=== PATIENT | male | born 1965 | race Caucasian/White ===

== ENCOUNTER 2017-05-22 12:47 | Inpatient (IN) | payer MEDICAID ==
[2017-05-22] VITALS (22 sets, daily range): BP systolic 87–173; BP diastolic 61–113; BMI 31.8
[~2017-05-22] VITALS: Ht 177.8 cm; Wt 96.2 kg
--- NOTE | ~2017-05-22 | OP ---
PATIENT NAME: TRACY BASHIR MEDICAL RECORD: [id number] :65 LOCATION:.[facility] D.2310 ADMISSION DATE:05/22/17 SURGEON: JOLEEN NEWMAN MD DATE OF OPERATION: 05/22/2017 INDICATION: Cardiogenic shock. PROCEDURES: Left heart catheterization, selective coronary angiography, right femoral artery approach. CATHETERS: A 6-Indonesian sheath, 5/4 left and right Jae. The procedure was tolerated. We proceeded with PTCA stenting of the circumflex. FINDINGS: Left ventriculography in the 30-degree RENO view shows severe global hypokinesis consistent with post code state EF 20%. CORONARY ANATOMY: LEFT MAIN: Left main is free of disease. LAD: LAD has a proximal stenosis about 80%. CIRCUMFLEX: Circumflex is a left dominant system. Circumflex has a distal stenosis in the PDA of 80%. OM2 90% stenosis. Subtotaled OM1 not appreciated till later views. DESCRIPTION OF PROCEDURE: Using an indwelling 6-Indonesian sheath, XB LAD guiding catheter provided good guide support. The lesion in the LAD was addressed with a 3.0 x 15 mm [place] balloon up to 10 atmospheres. OM2 was addressed with a 3.0 x 15 mm [place] balloon up to 14 atmospheres. OM1 was then crossed with predeployment balloon, it was a 3.0 x 15 mm [place] balloon. Stent deployed were a 3.0 x 15 mm Integrity and 3.0 x 15 mm Integrity, both up to 14 atmospheres for 45 seconds. Final angiography shows excellent resolution of one 80% PDA stenosis to no significant residual, OM2 80-90% stenosis, no significant residual. OM1 successful stenting to the subtotal stenosis. IMPRESSION: The patient was transferred to ICU in critical condition. Prognosis appears to be poor given overall neurological status with tonic-clonic seizures in the procedure. TRANSINT:[id number] Voice Confirmation ID: [id number] DOCUMENT ID: [id number] JOLEEN NEWMAN MD CC: [id number] DICTATION DATE: 05/22/17 1420 ORNAMENTAL IRONWORKER: 05/22/17 1450 [place] [address]
--- NOTE | ~2017-05-22 | HP ---
PATIENT: TRACY BASHIR MEDICAL RECORD: [id number] ACCOUNT: [id number] LOCATION:[facility]2310 : 65 ADMISSION DATE: 05/22/17 HISTORY AND PHYSICAL EXAMINATION HISTORY: A 51-year-old gentleman was at home, complained of chest pain, promptly thereafter collapsed, witnessed event. CPR started at home. EMS was called via 911 and rushed to the Emergency Room. Resuscitation was continued for approximately another 40 minutes. He was found to have inferior myocardial infarction. Being brought to the crown and bridge dental lab technician on an urgent basis. He has no known history of coronary artery disease per family report. PHYSICAL EXAMINATION: GENERAL: Intubated and sedated. Some decerebrate posturing of ____ extremities. HEENT: Normocephalic and atraumatic. NECK: No bruits noted. HEART: Tachycardic, regular. LUNGS: Upper airway noise consistent with intubation. ABDOMEN: Bowel sounds are hypoactive. No obvious masses. EXTREMITIES: Pulses are actually well preserved. No edema. IMPRESSION: Acute inferolateral myocardial infarction and cardiogenic shock. He is being taken to the crown and bridge dental lab technician on emergent basis. TRANSINT:[id number] Voice Confirmation ID: [id number] DOCUMENT ID: [id number] JOLEEN NEWMAN MD CC: [id number] DICTATION DATE: 05/22/171543 EXTENSION SERVICE SPECIALIST IN CHARGE: 05/22/17 1726 ADM IN [place] [id number] [place] [address]
--- NOTE | ~2017-05-22 | CN ---
PATIENT NAME:TRACY WRIGHT MEDICAL RECORD: [id number] : 65 LOCATION:[facility]2310 ADMIT DATE: 05/22/17 ACCOUNT: [id number] CONSULTING PHYSICIAN: MARIUM MADDOX MD REFERRING PHYSICIAN: LISANDRA NINA MD DATE OF CONSULTATION: 05/22/2017 CONSULT REQUESTING PHYSICIAN: Robinson Miller MD REASON FOR CONSULTATION: Vent management. HISTORY OF PRESENT ILLNESS: Mr. Wright is a 51-year-old gentleman who is now orally intubated and unresponsive. The history was taken from his . According to the , he is complaining of chest pain for the last 2-3 weeks and it was radiating to his left arm. The pain was persistent, getting worse with exertion. There was no associated nausea or vomiting. In the meantime, they also visited a casino. Today, at home, the patient was at home and the patient was working on something with ____ his that he is getting heart attack and he is passing out. The patient became unresponsive. Somebody in the family did some chest compression on him and 911 was called. The patient was intubated in the field and he was shocked [address] to the hospital. The patient was taken to the cardiac laborer powerhouse, and on the table, he had seizures as well as he coded again. The patient was shocked and antiepileptic medication was given. 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 Now, the patient is orally intubated and the patient is on the ventilator. REVIEW OF THE SYSTEMS: Details not obtainable. PAST MEDICAL HISTORY: According to the , he is smoker of 2-3 packs a day, but there is no history of hypertension or diabetes. He is not taking any medications for any illness. PAST SURGICAL HISTORY: Nonsignificant. PERSONAL AND SOCIAL HISTORY: The patient is . He is drinking as well as he is smoking 2-3 packs of cigarettes per day. FAMILY HISTORY: Noncontributory. PHYSICAL EXAMINATION: GENERAL: Now, the patient is orally intubated and sedated. The patient is unresponsive. VITAL SIGNS: Blood pressure is 87 to 102 over 73, pulse is 132, respirations 28, temperature 98.6, and SpO2 is 90% on 100% nonrebreather. HEENT: Conjunctivae are pink. Sclerae are nonicteric. NECK: Neck is supple. There is elevated JVD. CHEST: There are bilateral crackles. No wheezing. HEART: Rate and rhythm regular. Normal sounds. No murmur. ABDOMEN: Abdomen is soft. Bowel sounds are present. No hepatosplenomegaly. RECTAL: Deferred. EXTREMITIES: No cyanosis. No clubbing. No pedal edema. CENTRAL NERVOUS SYSTEM: The pupils are nearly 4 mm and reactive to light, but there is no palpebral response to painful stimuli and verbal stimuli. LABORATORY DATA: CBC; WBC is 13.2, hemoglobin 15.3, hematocrit 46.9, and CONSULT REPORT [id number] TRACY WRIGHT platelet count is 149. Chemistry; sodium 142, potassium 3.4, BUN is 14, creatinine 1.5, and glucose 277. ABG; pH was 7.00, pCO2 was 42.5, pO2 of 87, and bicarb is 10.7. The lactic acid level is 19.63. IMPRESSION: 1. Acute respiratory failure secondary to cardiopulmonary arrest. 2. Acute SD. 3. Metabolic acidosis. 4. Lactic acidosis, most likely secondary to cardiopulmonary arrest and poor perfusion. 5. Seizure disorder, possible anoxic encephalopathy. 6. Tobacco dependence syndrome. 7. Leukocytosis. RECOMMENDATION: 1. We will continue mechanical ventilation. Start on bicarb drip. Start him on Rocephin empirically. 2. DVT and GI blood ulcer prevention. 3. Albuterol and ipratropium nebulizer. 4. Followup labs and chest radiograph in the morning. 5. Consult Dr. Francisco. The overall prognosis is guarded. I discussed with family in lengthy. The critical care time is [address] Miller, thank you for involving me in the care of Mr. Wright. TRANSINT:[id number] Voice Confirmation ID: [id number] DOCUMENT ID: [id number] MARIUM MADDOX MD CC: ROBINSON ENWMAN MD [id number] DICTATION DATE: 05/22/171701 ALL AROUND PATTERNMAKER: 05/22/172021 ADM IN [facility] [address] [place] [address]
--- NOTE | ~2017-05-22 | HEMODYNAMI ---
PATIENT:TRACY BASHIR MEDICAL RECORD: [id number] : 65 LOCATION:[facility] D.2310 ADMISSION DATE: 05/22/17 Generatedon:05/24/20179:30 Patient name: TRACY BASHIR Patient #: [id number] SSN: : 1965 Date of study: 05/22/2017 Page: Of Hemodynamic Procedure Report Patient Data Patient Demographics Procedure consent was obtained First Name: TRACY Gender: Male Last Name: KRYSTEN : 1965 Middle Initial: W Age: 51 year(s) Patient #: [id number] Race: Additional ID: [id number] Contact details [address]: [address] [place] [address] State: [place] City: [place] Zip code: [address] Admission Admission Data Admission Date: 05/22/2017 Admission Time: 14:59 Room #: D.2310 Procedure Procedure Types Cath Procedure Diagnostic Procedure LHC LHC w/Coronaries PCI Procedure AMI-BMS/BASIM Initial PTCA Additional Miscellaneous Procedures Moderate Sedation up to 45 minutes Procedure Description Procedure Date Procedure Date: 05/22/2017 Procedure Start Time: 13:27 Procedure End Time: 14:28 Procedure Staff Name Function Darling Parisi RT Monitor Baljit Houston RT Scrub True Pinto RN Nurse Robinson Miller MD Performing Physician Ileana Agrawal RT Scrub Procedure Data Cath Procedure Fluoroscopy Diagnostic fluoroscopy Total fluoroscopy Time: time: 15.8 min 15.8 min Diagnostic fluoroscopy Total fluoroscopy dose: dose: 2044 mGy 2044 mGy Contrast Material Contrast Material Type Amount (ml) Isovue 300 257 Entry Location Entry Primary Successful Side Size Upsize Upsize Entry Closure Succes sful Closure Location (Fr) 1 (Fr) 2 (Fr) Remarks Device Remarks Femoral Right 6 Fr Sheath artery Short sutured in place Estimated blood loss: 10 ml Diagnostic catheters Device Type Used For End Catheter Placement Cordis 5Fr JL 4.0 Left Coronary Catheter (MP) Angiography Cordis 5Fr 3DRC Catheter Right Coronary (MP) Angiography Cordis 5Fr Pigtail LV Angiography Catheter (MP) Procedure Complications No complications Procedure Medications Medication Administration Route Dosage Integrilin (Bolus I.V. 9 ml 2mg/ml) Oxygen Lidocaine 2% added to field 20 Heparin Flush Bag added to field 2 bags (1000units/500ml NS) 0.9% NaCl I.V. 100 ml/hr Ativan 2 mg unlisted medication I.V. drip 1000 Solumedrol I.V. 125 mg Ativan 2 mg Hemodynamics Rest Heart Rate: 125 (bpm) Pressure Samples Time Site Value (mmHg) Purpose Heart Use Rate(bpm) 14:10 LV 143/49,56 Snapshot 113 Gradients Valve Time Site Site Mean SEP/DFP Peak To Heart Use 1 2 (mmHg) (sec/min) Peak Rate (mmHg) (bpm) Aortic 14:11 LV AO 121 Snapshots Pre Cath Intra NCS Post Cath Vital Signs Time Heart Resp SPO2 etCO2 [id number] NIBP (mmHg) Rhythm Pain Sedatio n Rate (ipm) (%) (mmHg) (mmHg) Status Level (bpm) 13:25:44 128 24 100 0 0 Measuring NSR 0 (11) 10(A) , No pain 13:27:18 125 25 100 0 0 137/107(121) NSR 0 (11) 10(A) , No pain 13:32:05 123 21 100 0 0 151/103(134) NSR 0 (11) 10(A) , No pain 13:37:04 119 24 100 0 0 Measuring NSR 0 (11) 10(A) , No pain 13:37:51 120 29 99 0 0 148/85(116) NSR 0 (11) 10(A) , No pain 13:42:50 133 25 97 0 0 Measuring NSR 0 (11) 10(A) , No pain 13:43:39 123 34 84 0 0 Disturbed NSR 0 (11) 10(A) , No pain 13:48:13 124 27 91 0 0 Out of range NSR 0 (11) 10(A) , No pain 13:53:13 128 57 91 0 0 165/102(127) NSR 0 (11) 10(A) , No pain 13:58:11 121 30 89 0 0 Measuring NSR 0 (11) 10(A) , No pain 13:59:15 129 30 84 0 0 182/116(126) NSR 0 (11) 10(A) , No pain 14:04:14 125 31 89 0 0 Measuring NSR 0 (11) 10(A) , No pain 14:04:16 126 30 87 0 0 151/93(122) NSR 0 (11) 10(A) , No pain 14:09:15 120 34 89 0 0 Measuring NSR 0 (11) 10(A) , No pain 14:10:00 124 29 89 0 0 148/97(110) NSR 0 (11) 10(A) , No pain 14:14:51 127 26 85 0 0 150/89(106) NSR 0 (11) 10(A) , No pain 14:19:40 126 27 87 0 0 153/101(116) NSR 0 (11) 10(A) , No pain 14:24:31 124 39 92 0 0 160/103(132) NSR 0 (11) 10(A) , No pain Medications Time Medication Route Dose Verified Delivered Reason Notes Effectiveness by by 13:21:37 Oxygen et intubated Robinson Davidsonie Per pt is tube [facility] Pinto RN physician unresponsive on arrival to lab 13:25:13 Lidocaine 2% added 20ml vial Robinson Biswas used for pt is to [facility] Pinto RN procedure unresponsive field BURCH on arrival to lab 13:25:23 Heparin Flush added 2 bags Robinson Robinson used for pt is Bag to [facility] procedure unresponsive (1000units/500ml field MD BURCH on arrival NS) to lab 13:25:31 0.9% NaCl I.V. 100 ml/hr Robinson Davidsonie Per pt is [facility] Pinto RN physician unresponsive on arrival to lab 13:34:10 Integrilin I.V. 9 ml Robinson Davidsonie for waste d 1 ml (Bolus 2mg/ml) [facility] Pinto RN antiplatelet of vial MD therapy 13:44:02 Ativan IV 2 mg Robinson Biswas Per for s eizure [facility] T[facility] Pinto RN physician activity. 14:01:27 cerebyx I.V. 1000 Robinson Biswas Per drip mg/[address] T[facility] Pinto RN physician @ 240 MD ml/hr 14:02:13 Solumedrol I.V. 125 mg Robinson [address] Per [facility] T[facility] Pinto RN physician 14:09:07 Ativan IV 2 mg Robinson Acosta RN physician Procedure Log Time Note 13:18:50 Edwardo Randall RT(R) sent for patient. Start room use. 13:18:51 Time tracking: Regular hours 13:18:55 Plan of Care:Hemodynamics will remain stable., Cardiac rhythm will remain stable., Comfort level will be maintained., Respiratory function will remain adequate., Patient/ family verbilizes understanding of procedure., Procedure tolerated without complication., Recovers from procedure without complications.. 13:19:00 Use device set Femoral PCI 13:19:01 Acist Hand Control opened to sterile field. 13:19:01 Acist Syringe opened to sterile field. 13:19:02 Terumo 6Fr Murtaugh Sheath opened to sterile field. 13:19:02 Medline Cath Pack opened to sterile field. 13:19:02 Bag Decanter opened to sterile field. 13:19:03 Merit BasixCompak Inflation Kit opened to sterile field. 13:19:03 St Robin 260cm J .035 wire opened to sterile field. 13:19:04 Tegaderm 4 x 4 opened to sterile field. 13:19:04 Acist Manifold opened to sterile field. 13:19:14 Use device set Multipack Set 13:19:16 Diagnostic Infinity 5Fr Multipack catheter opened to sterile field. 13:21:04 Patient received from ED to CCL 1 On ventilator. Tansferred to table in Supine position. 13:21:05 Warm blankets applied, and jarred hugger turned on for patient comfort. 13:21:06 Correct patient and procedure confirmed by team. 13:21:07 Signed procedure consent form obtained from patient. 13:21:08 ECG and BP/O2 sat monitors applied to patient. 13:21:09 Full Disclosure recording started 13:21:37 Oxygen intubated et tube was administered by True Pinto RN; Per physician; pt is unresponsive on arrival to lab 13:24:35 Vital chart was started 13:24:40 Rhythm: sinus rhythm 13:24:46 H&P Date Dictated: 05/22/2017 Emergent; H&P N/A. 13:24:47 Pre-op teaching completed and patient verbalized understanding. 13:24:47 Pre-procedure instructions explained to patient. 13:24:51 Family in waiting room. 13:24:52 Patient NPO since Midnight. 13:25:03 Is the patient allergic to Iodine/contrast media? No. 13:25:04 Is patient on blood thinner?No 13:25:13 Lidocaine 2% 20ml vial added to field was administered by True Pinto RN; used for procedure; pt is unresponsive on arrival to lab 13:25:19 Patient diabetic? No. 13:25:23 Heparin Flush Bag (1000units/500ml NS) 2 bags added to field was administered by Robinson Miller MD; used for procedure; pt is unresponsive on arrival to lab 13:25:23 ----Pre-sedation anethsthesia assessment.---- 13::31 0.9% NaCl 100 ml/hr I.V. was administered by True Pinto RN; Per physician; pt is unresponsive on arrival to lab 13:25:42 UNABLE TO OBTAIN ASSESSMENT, PT ON VENT. 13:25:46 Pre procedure: right dorsailis pedis pulse 1+ Palpable, but thready & weak; easily obliterated 13:25:48 Patient pain scale 0/10 ?. 13:26:05 IV patent on arrival in right forearm with 0.9% NaCl at KVO. 13::19 IV started by True Pinto RN inleft forearm with a 18 gauge IV catheter with 0.9% NaCl at KVO. 13:26:23 Lab results completed and on chart. 13:26:25 Alarms reviewed by R. N. 13:26:25 Right groin area was prepped with chlora-prep and draped in sterile fashion 13::26 Sharps counted by scrub and verified by R.N. 13:26:28 Final Timeout: patient, procedure, and site verified with staff and physician. All members of the team are in agreement. 13:26:30 Right groin site verified by team. 13:26:32 Physical assessment completed. ASA score P 4 - A patient with severe systemic disease that is a constant threat to life as per Robinson Miller MD. 13:26:35 Sedation plan: IV Moderate Sedation Versed, Fentanyl 13:26:52 18G IV catheter opened to sterile field. 13:27:01 Procedure started. 13:27:03 Local anesthetic to right femoral artery with Lidocaine 2% by Robinson Miller MD.INITIAL ACCESS ONLY 13:27:45 A 6 Fr Short sheath was inserted into the Right Femoral artery 13:28:53 A Cordis 5Fr JL 4.0 Catheter (MP) was advanced over the wire and used for Left Coronary Angiography. 13:29:25 Baseline sample Acquired. 13:29:35 IV Extension Set opened to sterile field. 13:31:44 Catheter removed. 13:31:49 A Cordis 5Fr 3DRC Catheter (MP) was advanced over the wire and used for Right Coronary Angiography. 13:31:52 Catheter removed. 13:32:39 Guerra Whisper J 300cm 0.014 guide wire opened to sterile field. 13:33:02 iOpenertronic Launcher 6Fr JR 4.0 SH guide catheter opened to sterile field. 13:34:10 6 Fr JR 4.0 SH guide catheter was inserted over the wire 13:34:10 Integrilin (Bolus 2mg/ml) 9 ml I.V. was administered by True Pitno RN; for antiplatelet therapy; wasted 1 ml of vial 13:34:54 WHISPER wire advanced. 13:35:04 pt having decordicate posturing, dr rmoan aware. pupils moving side to side with slow light reaction. 13:38:25 Wire removed. 13:38:37 Guide Catheter removed. unable to get back-up support 13:38:50 6 Fr HS I SH guide catheter was inserted over the wire 13:41:33 WHISPER wire advanced. 13:41:46 Guerra BMW Evening Shade 2 J-tip 300cm 0.014 guide wir opened to sterile field. 13:44:02 Ativan 2 mg IV was administered by True Pinto RN; Per physician; for seizure activity. 13:46:53 Wire removed. 13:47:36 UNABLE TO CROSS RCA OCCLUSION 13:47:57 Cordis 6FR XBLAD 3.5 guide catheter opened to sterile field. 13:48:40 6 Fr XBLAD 3.5 guide catheter was inserted over the wire 13:49:32 The Austin Sci Angelina 2.0 X 15 balloon was advanced and then removed because of failure to cross lesion 13:50:29 Whisper wire advanced. 13:51:21 Inflation number: 1 A Austin Sci Angelina 3.0 X 20 balloon was prepped and advanced across the Mid CX, then inflated to 14 ANTONI for 0:16 (min:sec). 13:52:37 Inflation number: 2 The Austin Sci Angelina 3.0 X 20 balloon was reinflated across the Mid CX, to 14 ANTONI for 0:23 (min:sec). 13:53:27 Balloon removed over the wire. 13:53:28 Wire removed. 13:53:29 Guide catheter removed. 13:54:19 6 Fr XBLAD 3.5 guide catheter was inserted over the wire 13:55:14 Whisper wire advanced. 13:59:15 The Austin Sci Angelina 3.0 X 20 balloon was advanced and then removed because of failure to cross lesion 14:01:23 Inflation number: 1 A Mozec Rx 3.0 x 14 balloon was prepped and advanced across the 1st Ob Allyson, then inflated to 14 ANTONI for 0:25 (min:sec). 14:01:27 cerebyx 1000 mg/100 ml @ 240 ml/hr I.V. drip was administered by True Pinto RN; Per physician; 14:01:48 Inflation number: 2 The Mozec Rx 3.0 x 14 balloon was reinflated across the 1st Ob Allsyon, to 14 ANTONI for 0:08 (min:sec). 14:02:13 Solumedrol 125 mg I.V. was administered by True Pinto RN; Per physician; 14:02:23 Inflation number: 3 The Mozec Rx 3.0 x 14 balloon was reinflated across the 1st Ob Allyson, to 10 ANTONI for 0:06 (min:sec). 14:02:41 Inflation number: 4 The Mozec Rx 3.0 x 14 balloon was reinflated across the 1st Ob Allyson, to 10 ANTONI for 0:04 (min:sec). 14:03:04 Inflation number: 5 The Mozec Rx 3.0 x 14 balloon was reinflated across the 1st Ob Allyson, to 6 ANTONI for 0:07 (min:sec). 14:04:03 Balloon removed over the wire. 14:06:11 Inflation Number: 6 A Medtronic Integrity 3.0 X 15 stent was prepped and advanced across the 1st Ob Allyson. The stent was deployed at 14 ANTONI for 0:20 (min:sec). 14:07:29 Stent catheter was removed intact over wire. 14:08:51 Inflation Number: 7 A Medtronic Integrity 3.0 X 12 stent was prepped and advanced across the 1st Ob Allyson. The stent was deployed at 14 ANTONI for 0:23 (min:sec). 14:09:07 Ativan 2 mg IV was administered by True Pinto RN; Per physician; 14:09:15 Wire removed. 14:09:15 Stent catheter was removed intact over wire. 14:09:19 Guide catheter removed. 14:10:15 A Cordis 5Fr Pigtail Catheter (MP) was advanced over the wire and used for LV Angiography. 14:10:24 LV gram done using RENO 14::27 Injector settings: Ml/sec: 10, Volume: 20, 14:10:28 LV hemodynamics recorded. 14:10:54 EF : 20 % 14:11:06 Catheter removed. 14:11:13 Sheath removed intact; hemostasis achieved with Sheath sutured in place to the Right Femoral artery. 14:11:15 Procedure ended.(Physican Out) 14:11:30 Fluoroscopy time 15.80 minutes. 14:11:33 Fluoroscopy dose: 2044 mGy 14:11:33 Flurop Dose total: 4 14:11:43 Contrast amount:Isovue 300 257ml. 14:11:57 Sharps counted by scrub and verified by R.N. 14:20:04 2.0 Silk 685H opened to sterile field. 14:20:13 Arterial Line opened to sterile field. 14:20:30 Insertion/operative site no bleeding no hematoma. 14:20:31 Insertion/operative site no bleeding no hematoma. 14:20:33 Post-op/insertion site Right Femoral artery dressed using a 4 x 4 and Tegaderm. 14:20:36 Post right femoral artery:stable, clean and dry 14:20:37 Post Procedure Pulses reassessed and unchanged 14:20:42 Post-procedure physical assessment completed. ASA score P 4 - A patient with severe systemic disease that is a constant threat to life as per Robinson Miller MD. 14:21:35 Post procedure rhythm: unchanged. 14:22:28 Estimated blood loss: 10 ml 14:22:29 Patient needs reinforcement of post procedure teaching. 14:22:29 Post procedure instruction explained to patient.Patient verbalizes understanding. 14:22:51 Procedure type changed to Cath procedure, Diagnostic procedure, LHC, LHC w/Coronaries, PCI procedure, AMI-BMS/BASIM Initial, PTCA Additional, Miscellaneous Procedures, Moderate Sedation up to 45 minutes 14:22:56 Procedure Complication : No complications 14:22:58 See physician's report for complete and final results. 14:23:28 Procedure and supply charges have been captured, reviewed, submitted and are correct. 14:26:[address] to low suction, verified with fluro and ascultation of abd. 14:28:25 Vital chart was stopped 14:28:28 Report given to ICU. 14:28:34 Patient transfered to ICU with Bed. 14:28:40 Full Disclosure recording stopped 14:28:40 Procedure ended. 14:28:44 End room use (Document Last) 9:28:37 Exoseal to RFA done in ICU by Dr Roman and Delmy YATES(R) on 05/24/17 9:28:58 Post right femoral artery:stable, clean and dry 9:29:01 Post-op/insertion site Right Femoral artery dressed using a 4 x 4 and Tegaderm. 9:29:17 Cordis 6Fr Exoseal opened to sterile field. Intervention Summary Intervention Notes Time ActionType Lesion and Equipment Action# Pressure Duration Attributes Used 13:49:32 Discard Austin Balloon Sci Angelina 2.0 X 15 balloon 13:51:21 Inflate Mid CX Austin 1 14 00:16 balloon Sci Angelina 3.0 X 20 balloon 13:52:37 Reinflate Mid CX Austin 2 14 00:24 balloon Sci Angelina 3.0 X 20 balloon 13:59:15 Discard Austin Balloon Sci Angelina 3.0 X 20 balloon 14:01:23 Inflate 1st Ob Allyson Mozec Rx 1 14 00:25 balloon 3.0 x 14 balloon 14:01:48 Reinflate 1st Ob Allyson Mozec Rx 2 14 00:08 balloon 3.0 x 14 balloon 14:02:23 Reinflate 1st Ob Allyson Mozec Rx 3 10 00:06 balloon 3.0 x 14 balloon 14:02:41 Reinflate 1st Ob Allyson Mozec Rx 4 10 00:04 balloon 3.0 x 14 balloon 14:03:04 Reinflate 1st Ob Allyson Mozec Rx 5 6 00:07 balloon 3.0 x 14 balloon 14:06:11 Place stent 1st Ob Allyson Medtronic 6 14 00:20 Integrity 3.0 X 15 stent 14:08:51 Place stent 1st Ob [facility] Medtronic 7 14 00:23 Integrity 3.0 X 12 stent Device Usage Item Name Manufacture Quantity Catalog Number Hospital Part Current M inimal Lot# / Charge Number Stock Stock Serial# Code Acist Acist 1 33776 845275 822759 071805 2 0 Syringe Medical Systems Inc Acist Hand Acist 1 89877 847644 662836 864026 5 PlayerTakesAll Medical Systems Amware Bag Microtek 1 2002S 220932 56813 695865 5 Adstrix Inc. Medline Cardinal 1 [id number] 466183 97899 677216 5 Cath Pack Health Terumo 6Fr Terumo 1 [id number] 454045 835639 129285 [address] Robin 1 998498 860510 432780 542482 3 0 260cm J .035 wire Merit Merit 1 [id number] 771913 075376 066899 1 5 SensGard Medical Inflation Kit Acist Acist 1 53388 436866 164115 521274 5 Intronis Inc Tegaderm 4 3M 1 1626W 039024 554206 790509 5 x 4 Diagnostic Cardinal 1 [id number] 902509 06343 707076 3 0 Infinity Health 5Fr Multipack catheter 18G IV B. Santiago 1 1624541-19 749827 239504 939904 5 catheter Cordis 5Fr Cardinal 1 529180 5 JL 4.0 Health Catheter (MP) IV Hospira 1 20409-58 273955 83952 126966 5 Extension Set Cordis 5Fr Cardinal 1 410327 5 3DRC Health Catheter (MP) Guerra Guerra 1 [id number] 955053 631227 571239 5 Whisper J Vascular 300cm 0.014 guide wire Medtronic Medtronic 1 [id number] 781924 48886 536805 1 Launcher 6Fr JR 4.0 SH guide catheter Guerra BMW Guerra 1 [id number] 136841 696409 890899 5 Evening Shade 2 Vascular J-tip 300cm 0.014 guide wir Cordis 6FR Cardinal 1 [id number] 140694 833084 142637 1 0 XBLAD 3.5 Health guide catheter Austin Sci Austin 1 [id number] 030154 308121 203487 1 [id number] Angelina Scientific 2.0 X 15 balloon Austin Sci Austin 1 [id number] 249043 341915 951227 1 [id number] Angelina Scientific 3.0 X 20 balloon Mozec Rx Cardinal 1 [id number] 653392 [id number] 033178 5 UMOB04 3.0 x 14 Health balloon Medtronic Medtronic 1 [id number] 151525 316432 1 [id number] Integrity 3.0 X 15 stent Medtronic Medtronic 1 [id number] 643678 131114 3 [id number] Integrity 3.0 X 12 stent Cordis 5Fr Cardinal 1 227341 5 Pigtail Health Catheter (MP) 2.0 Silk Ethicon 1 685H 857632 50920 775256 5 685H Arterial Damon 1 [id number] 085721 62693 323167 5 Line Lifesciences Cordis 6Fr Cardinal 1 EX600 336342 180953 982407 1 0 [facility] Health Signature Audit [place] Stage Time Signature Unsigned Intra-Procedure 05/22/2017 Darling Parisi 2:29:32 PM Counts RT(R) RT(R) 05/24/2017 9:27:12 AM Intra-Procedure 05/24/2017 Darling 9:30:23 AM Counts RT(R) Signatures Monitor : Darling Signature : Counts RT Date : Time : [id number] [place] [address]
[2017-05-22 14:00] LABS: BASOPHILS 0.7 % (0-2); EOSINOPHILS 4.2 % (0-7); HEMATOCRIT 46.9 % (42.0-54.0); HEMOGLOBIN 15.3 g/dL (13.5-17.5); IMMATURE GRANULOCYTES 7.6 % (0-5); LYMPHOCYTES 62.4 % (15-50); MCH 31.7 pg (26.0-34.0); MCHC 32.6 g/dL (31.0-37.0); MCV 97.3 fL (80.0-100.0); MEAN PLATELET VOLUME 11.4 fL (7.4-10.4); NEUTROPHILS 20.1 % (40-80); RBC 4.82 10x6/uL (4.20-6.10); WBC 13.2 10x3/uL (4.8-10.8)
[2017-05-22 14:12] LABS: ALBUMIN 2.6 g/dL (3.4-5.0); ALKALINE PHOSPHATASE 98 U/L (46-116); ALT (SGPT) 91 U/L (10-68); BILIRUBIN - TOTAL 0.23 mg/dL (0.2-1.3); CALC OSMOLALITY 293 mosm/kg (275-300); CALCIUM 8.7 mg/dL (8.5-10.1); CARBON DIOXIDE 19.2 mmol/L (21.0-32.0); CHLORIDE - SERUM 102 mmol/L (98-107); CREATININE - SERUM 1.5 mg/dL (0.6-1.3); POTASSIUM - SERUM 3.4 mmol/L (3.5-5.1); PROTEIN - SERUM 6.2 g/dL (6.4-8.2); SODIUM 142 mmol/L (136-145); UREA NITROGEN 14 mg/dL (7-18); eGFR NON AFRICAN AMERICAN 52 mL/min (90-120)
[2017-05-22 14:15] LABS: GLUCOSE 277 mg/dL (74-106)
[2017-05-22 14:17] LABS: APTT 43.2 SECONDS (22.8-39.4); INR 1.26 (0.85-1.17); PROTIME 15.7 SECONDS (11.6-15.0)
[2017-05-22 14:24] LABS: PLATELET COUNT 149 10x3/uL (130-400)
[2017-05-22 14:27] LABS: CKMB 0.5 U/L (0.0-3.6); CREATINE KINASE 145 UL (21-232); MAGNESIUM - SERUM 2.6 mg/dL (1.8-2.4)
[2017-05-22 14:29] LABS: TROPONIN-I 0.137 ng/mL (0.000-0.060)
--- NOTE | 2017-05-22 14:40 | NUR ---
RECEIVED PT FROM [facility]. PLACED ON ICU MONITORS. VENT FIO2 100%. 7.5 ETT. 26 AT THE LIP. RIGHT GROIN SHEATH WITH A-LINE.
[2017-05-22] MEDS ORDERED: ACETAMINOPHEN325 MG PO (15:35)
--- NOTE | 2017-05-22 16:39 | NUR ---
DR. MADDOX AT BEDSIDE. SPEAKING WITH PT'S FAMILY.
--- NOTE | 2017-05-22 17:31 | NUR ---
CALLED CONSULT TO DR. CHAVIRA. NO NEW ORDERS RECEIVED. WILL ROUND ON PT IN THE MORNING.
--- NOTE | 2017-05-22 19:00 | NUR ---
REPORT RECEIVED. SHIFT ASSESSMENT COMPLETED PER FLOW SHEET PT LAYING IN BED SEDATED ON VENT WITH ORAL ETT AT 25 CM RT LIP LINE. PUPILS 4 MM SLUGGISH REACTION. PT DOES NOT WITHDRAW TO PAINFUL STIMULI. RT NARE NGT TO LIWS. S1S2 PRESENT. RADIAL AND PEDAL PULSES PALP. TELEMETRY MONITORING RATE OF 118. CAPILLARY REFILL <3 SECS UPPER AND LOWER EXTREMITIES. LUNG SOUNDS CLEAR BILAT. PRADO CATHETER TO GRAVITY DRAINING CONCENTRATED YELLOW URINE. SKIN WARM AND DRY. RT GROIN SHEATH SITE, ARTERIAL LINE IN PLACE, DRESSING CDI. RT AC AND LT WRIST PIV PATENT. RT&LT SOFT WRIST RESTRAINTS. VENT ON A/C. FI02 100%. RATE OF 22. TV 550. PEEP 5. SEE FLOW SHEET FOR COMPLETE ASSESSMENT. WILL CONTINUE TO MONITOR.
--- NOTE | 2017-05-22 21:00 | NUR ---
FAMILY AT BEDSIDE. GAVE PT'S ID TO , AND CUSTOMER LOGISTICS MANAGER, TOLD HER WE COULD NOT KEEP THE CUSTOMER LOGISTICS MANAGER IN THE ROOM DUE TO SAFETY PURPOSES AND USE OF OXYGEN, SHE VERBALIZED UNDERSTANDING. UPDATE GIVEN. QUESTIONS ANSWERED. WILL CONTINUE TO MONITOR PT.
--- NOTE | 2017-05-22 23:00 | NUR ---
REASSESSMENT COMPLETED PER FLOW SHEET. SEE FOR DETAILS. NO DISTRESS NOTED AT THIS TIME. WILL CONTINUE TO MONITOR.
[2017-05-23] VITALS (31 sets, daily range): BP systolic 100–126; BP diastolic 58–77; Ht 177.8 cm; Wt 96.2 kg
--- NOTE | 2017-05-23 01:00 | NUR ---
PT SEDATED ON VENT. NO DISTRESS NOTED. VSS. WILL CONTINUE TO MONITOR.
--- NOTE | 2017-05-23 03:00 | NUR ---
REASSESSMENT COMPLETED PER FLOW SHEET, SEE FOR DETAILS. NO ACUTE CHANGES NOTED. VSS. REPOSITIONED FOR COMFORT. WILL CONTINUE TO MONITOR.
--- NOTE | 2017-05-23 04:00 | NUR ---
BLOOD DRAWN FOR AM LABS. BED IN LOWEST POSITION. WILL CONTINUE TO MONITOR.
[2017-05-23 04:18] LABS: BASOPHILS 0.1 % (0-2); EOSINOPHILS 0 % (0-7); HEMATOCRIT 42.6 % (42.0-54.0); HEMOGLOBIN 14.9 g/dL (13.5-17.5); IMMATURE GRANULOCYTES 0.4 % (0-5); LYMPHOCYTES 8.8 % (15-50); MCH 31.1 pg (26.0-34.0); MEAN PLATELET VOLUME 10.3 fL (7.4-10.4); MONOCYTES 4.9 % (2-11); NEUTROPHILS 85.8 % (40-80); RBC 4.79 10x6/uL (4.20-6.10); RDW 13.2 % (11.5-14.5)
[2017-05-23 04:21] LABS: MCV 88.9 fL (80.0-100.0); PLATELET COUNT 195 10x3/uL (130-400); WBC 19.5 10x3/uL (4.8-10.8)
[2017-05-23 04:36] LABS: ALBUMIN 2.5 g/dL (3.4-5.0); BILIRUBIN - TOTAL 0.65 mg/dL (0.2-1.3); CALCIUM 7.5 mg/dL (8.5-10.1); CREATININE - SERUM 1.8 mg/dL (0.6-1.3); POTASSIUM - SERUM 3.5 mmol/L (3.5-5.1); PROTEIN - SERUM 6.1 g/dL (6.4-8.2)
[2017-05-23 04:41] LABS: ANION GAP 16.1 mmol/L (8-16); CARBON DIOXIDE 24.4 mmol/L (21.0-32.0)
--- NOTE | 2017-05-23 05:00 | NUR ---
SEDATION VACATION GIVEN. PT OPENED HIS EYES, DID NOT FOLLOW COMMANDS BUT WAS MOVING HIS ARMS, ATTEMPTING TO RAISE THEM, ASSURED HIM THAT HE WAS ON RESTRAINTS TO KEEP HIM FROM SELF EXTUBATING AND THAT IS WHY HE COULDN'T RAISE HIS ARMS. UPON SUCTIONING HE FLEXED AT THE KNEES. HE THEN STARTED COUGHING PERSISTANTLY AND WAS GETTING AGITATED. SEDATION RESUMED WITH DIPRIVAN AT 30 MCG/KG/MIN. WILL CONTINUE TO MONITOR.
--- NOTE | 2017-05-23 05:50 | NUR ---
PT FOUND INCONTINENT OF STOOL, LIGHT BROWN DIARRHEA NOTED. COMPLETE BED BATH GIVEN. [facility] GOWN PROVIDED. BED LINENS CHANGED. BED IN LOWEST POSITION. WILL CONTINUE TO MONITOR.
--- NOTE | 2017-05-23 07:30 | NUR ---
DR. CHAVIRA AT BEDSIDE. DIPRIVAN GTT OFF. PT AGGITATED AND PULLING AT IV LINES, RESTRAINTS. BILATERAL PIV PULLED OUT. NGT PULLED OUT FROM PT THRASHING IN BED. TOSSING HEAD SIDE TO SIDE. 18FR OGT PLACED BACK DOWN WITHOUT DIFFICULTY. VERIFIED WITH AIR BOLUS. PLACED BACK ON LIS. 20G PIV STARTED IN RIGHT HAND X1 STICK. NURSES X3 NEEDED TO HOLD PT STILL FOR IV STICK. RESTARTED DIPIVAN PER DR. CHAVIRA REQUEST. PT SELLTED BACK DOWN WHEN DIPRIVAN RESTARTED. VSS AT THIS TIME. PT RESTING COMFORTABLY. BILATERAL SOFT WRIST RESTRAINTS IN USE. BICARG GTT OFF AT THIS TIME.
--- NOTE | 2017-05-23 09:45 | NUR ---
PT'S FAMILY AT BEDSIDE. UPDATED ON PTS STATUS. SEDATION DECREASED. FAMILY ABLE TO SPEAK WITH PT. WOULD NOT SHAKE HEAD YES/NO, BUT WOULD TRACK FAMILY MEMBERS WITH EYES. SEDATION BACK ON AT 3OMCG/KG/MIN. PT RESTING COMFORTABLY.
--- NOTE | 2017-05-23 12:04 | NUR ---
LEVERMAN AT BEDSIDE.
--- NOTE | 2017-05-23 13:17 | NUR ---
DR. BARROS AT BEDSIDE. ORDERS TO D/C AMIODARONE GTT. GTT STOPPED.
--- NOTE | 2017-05-23 13:53 | NUR ---
PT BACK FROM CT BY BED. PLACED BACK ON MONITORS. VSS AT THIS TIME. PT RESTING COMFORTABLY.
--- NOTE | 2017-05-23 15:30 | NUR ---
NO CHANGES NOTED. PT RESTING COMFORTABLY.
--- NOTE | 2017-05-23 17:20 | NUR ---
VSS. NO CHANGES NOTED.
--- NOTE | 2017-05-23 19:48 | NUR ---
PT FAMILY CALLED, PASSWORD PROVIDED, UPDATE GIVEN AND ALL QUESTIONS ANSWERED.
--- NOTE | 2017-05-23 21:07 | NUR ---
NO VISITORS PRESENT AT THIS TIME. PT POSITIONED FOR COMFORT, ORAL CARE AND SUCTIONING PROVIDED, VSS.
--- NOTE | 2017-05-23 23:59 | NUR ---
PT STEPDAUGHTER, HIRO CALLED, PASSWORD PROVIDED AND UPDATE GIVEN. ALL QUESTIONS ANSWERED, DENIES ANY OTHER NEEDS AT THIS TIME.
[2017-05-24] VITALS (18 sets, daily range): BP systolic 119–153; BP diastolic 61–88
--- NOTE | 2017-05-24 01:10 | NUR ---
POSITIONED PT FOR COMFORT SUPPORTED WITH PILLOWS, ST ON CM, ORAL CARE AND SUCTIONING PROVIDED-THICK GARCIA SECRETIONS NOTED. VSS
--- NOTE | 2017-05-24 02:45 | NUR ---
REASSESSMENT PER FLOWSHEET, NO ACUTE CHANGES NOTED AT THIS TIME. PT REPOSITIONED FOR COMFORT SUPPORTED WITH PILLOWS, GOOD ARTERIAL WAVE FORM NOTED, REMAINS ST ON MONITOR.
[2017-05-24 04:30] LABS: BASOPHILS 0.1 % (0-2); EOSINOPHILS 0.5 % (0-7); HEMATOCRIT 37.9 % (42.0-54.0); HEMOGLOBIN 12.8 g/dL (13.5-17.5); IMMATURE GRANULOCYTES 0.2 % (0-5); LYMPHOCYTES 13.4 % (15-50); MCHC 33.8 g/dL (31.0-37.0); MEAN PLATELET VOLUME 10.9 fL (7.4-10.4); MONOCYTES 8.9 % (2-11); NEUTROPHILS 76.9 % (40-80); PLATELET COUNT 165 10x3/uL (130-400); RBC 4.13 10x6/uL (4.20-6.10); RDW 13.6 % (11.5-14.5); WBC 16.8 10x3/uL (4.8-10.8)
[2017-05-24 04:31] LABS: MCV 91.8 fL (80.0-100.0)
[2017-05-24 04:44] LABS: ALBUMIN 2.4 g/dL (3.4-5.0); ANION GAP 9.3 mmol/L (8-16); BILIRUBIN - TOTAL 0.76 mg/dL (0.2-1.3); CALCIUM 7.2 mg/dL (8.5-10.1); CREATININE - SERUM 1.6 mg/dL (0.6-1.3); POTASSIUM - SERUM 3.3 mmol/L (3.5-5.1); PROTEIN - SERUM 5.9 g/dL (6.4-8.2)
--- NOTE | 2017-05-24 05:27 | NUR ---
AM LAB REVIEWED, 1 OF 4 10 MEQ KCL RIDERS INITIATED PER ELECTROLYTE PROTOCOL TO TREAT K+ OF 3.3
--- NOTE | 2017-05-24 06:20 | NUR ---
DR CHAVIRA IN, UPDATED REGARDING PT STATUS AND PROGRESS, NEURO EXAM COMPLETED PER DR CHAVIRA WITH SEDATION OFF, REINITIATED ONCE COMPLETE PT STARTED TO BECOME RESTLESS AND AGITATED.
--- NOTE | 2017-05-24 07:00 | NUR ---
REC'D CARE OF PT. SEDATED ON VENT.
--- NOTE | 2017-05-24 07:40 | NUR ---
INITIAL ASSESSMENT COMPLETED PER FLOW SHEET. OGT TO LIWS WITH BROWN LIQUID RETURN. ETT 7.5, PROPERLY SECURED AT 24 AT LIP. TRYING TO CLIMB OOB. DIPRIVAN BEING TITRATED TO EFFECT. PLACEMENT OF OGT VERIFIED WITH CECYLL AIR BOLUS AUSCULTATED OVER GASTRIC REGION.RIGHT HAND PIV. DRSG CD&I. SEE IV FLOW SHEET FOR INFUSIONS. BILAT SOFT WRIST RESTRAINTS TO PROITECT AIRWAY. PRADO PATENT TO GRAVITY WITH CL Y URINE PRESENT. SCD'S. HEELS ARE BRIDGED. FOLLOWS COMMANDS. BONILLA. SEE FLOW SHEET FOR ADDITONAL ASSESSMENT.
--- NOTE | 2017-05-24 08:36 | NUR ---
DR. MADDOX CALLED ME. WANTS TO TRY TO START WEANING VENT. I CALLED BALJEET YATES AND UPDATED.
--- NOTE | 2017-05-24 09:45 | NUR ---
DR. BARROS AT BEDSIDE. HE DC'D RIGHT GROIN SHEATH AND PLACED EXOSEAL.
--- NOTE | 2017-05-24 09:59 | NUR ---
NO S/S OF BLEEDING OR HEMATOMA AT RIGHT GROIN DC'D SHEATH SITE.
--- NOTE | 2017-05-24 11:06 | NUR ---
DR. MADDOX AT BEDSIDE. HE TURNED DIPRIVAN OFF. BALJEET CHANGED TO SIMV RATE OF 12. PEEP 6. PS 10. FIO2 35%.
--- NOTE | 2017-05-24 11:19 | NUR ---
PLACED ON CPAP BY DR. MADDOX.
--- NOTE | 2017-05-24 12:13 | NUR ---
FAMILY AT BEDSIDE. UPDATED.
--- NOTE | 2017-05-24 12:55 | NUR ---
EXTUBATED TO 2L O2 VIA NC. RESTRAINTS KENYA'Lokesh.
--- NOTE | 2017-05-24 13:02 | NUR ---
DR. MADDOX AT BEDSIDE.
--- NOTE | 2017-05-24 13:37 | NUR ---
REMAINS ON 2L NC. SATTING 93%. AGITATED. HOLLERING. SCREAMING "I AM GOING TO THE [email or web address] [facility]." COMES INTO ROOM ATTEMPTING TO TALK WITH HIM TRYING TO SETTLE HIM DOWN.
--- NOTE | 2017-05-24 13:38 | NUR ---
SEEMS LESS AGITATED WITH AT BEDSIDE.
--- NOTE | 2017-05-24 13:41 | NUR ---
AGITATED. WANTS TO GO HOME. HOLLERING AT AND SON, "I AM GOING HOME TODAY".
--- NOTE | 2017-05-24 13:55 | NUR ---
REMAINS AT BEDSIDE. PT. REMAINS AGITATED.
--- NOTE | 2017-05-24 15:05 | NUR ---
REPOSITIONS SELF IN BED.
--- NOTE | 2017-05-24 15:07 | NUR ---
AT BEDSIDE. PT. STILL HOLLERING "I AM GOING HOME". TRYING TO TALK WITH HIM ABOUT HIS CONDITION AND NEAR EPISODE BUT REFUSES TO LISTEN AND TALK ABOUT IT.
--- NOTE | 2017-05-24 17:00 | NUR ---
PT. A&O X3. DISCUSSED WITH HIM THE NEED FOR HIM TO STAY IN THE HOSPITAL.
--- NOTE | 2017-05-24 17:05 | NUR ---
TRIED TO TALK TO HIM ABOUT HIS CONDITION. ABOUT JUST BEING EXTUBATED. AND HAVING STENTS PLACED. ABOUT HIS NEED TO STAY IN THE HOSPITAL. HIS RESPINSE WAS THIS. "I DON'T GIVE A FUCK. I AM GOING HOME! AND IF I , I WILL AT HOME."
--- NOTE | 2017-05-24 17:11 | NUR ---
DC'D JOHAN. UP TO BEDSIDE COMMODE.
--- NOTE | 2017-05-24 18:25 | NUR ---
DR. PANDA. PT. EXTREMLY AGITATED. WANTING TO GO AMA.
--- NOTE | 2017-05-24 18:37 | NUR ---
DR. BARROS RETURNED MY PAGE AND SAID TO LET HIM GO AMA.
--- NOTE | 2017-05-24 18:45 | NUR ---
FAMILY NOTIFIED TO COME AND PICK HIM UP.
--- NOTE | 2017-05-24 19:02 | NUR ---
PIV DC'D AT RIGHT HAND.
--- NOTE | 2017-05-24 19:02 | NUR ---
PIV DC'D BY JERALD RODRIGUEZ NOT BARON COTA.
--- NOTE | 2017-05-24 19:15 | NUR ---
FAMILY HERE TO PICK PT. UP. AGAIN DISCUSSED THE DISADVANTAGES OF LEAVING AMA. PT. LEAVES WITH FAMILY.
--- NOTE | 2017-05-27 06:51 | EEG ---
PATIENT:TRACY BASHIR DATE OF SERVICE: 05/22/17 MEDICAL RECORD: [id number] DATE OF : 65 LOCATION:D.231 D.ICU ADMISSION DATE: 05/22/17 REFERRING PHYSICIAN: INTERPRETING PHYSICIAN: YVON CHAVIRA MD DATE OF SERVICE: 05/23/2017 Electroencephalographic Report REFERRED BY: Dr. Walker as an inpatient, currently in room 2310. ELECTROENCEPHALOGRAM NUMBER: [id number] DATE OF EXAMINATION: 05/23/2017 at 12:00 noon. TECHNICAL DATA: This electroencephalographic recording consists of approximately 20 minutes of data collection utilizing the international 10/20 system of electrode placement and both referential and non-referential montages. Sixteen channels of electrocerebral recording are accompanied by a 17th channel dedicated to the electrocardiographic rhythm and 2 channels of electromyographic recording. Recording is performed primarily in the sedated state utilizing activation by photic stimulation. ELECTROENCEPHALOGRAPHIC DATA: The majority of the recorded electrocerebral activity is performed in sedated state. The patient has been on Diprivan drip. This was stopped prior to start of the study, but by 9 minutes of recording, the patient is agitated, biting on his ET tube and the nursing staff put him back on Diprivan. As the recording progresses up to approximately 9 minutes of recording, there is a brief period of time where a significant amount of electromyographic artifact and rapid eye movements are seen and the posterior dominant background begins to emerge at 6-7 Hz. The majority of the remainder of the recording is marked by a lack of electromyographic artifact and rapid eye movements. There is no evidence of a posterior dominant background. There is excessive fast activity related to sedative medication. No focal slowing is identified. No epileptiform discharges are seen. Photic stimulation induces no abnormal change in the recorded electrocerebral activity. INTERPRETATION: Sedated. This electroencephalographic recording is consistent with the patient's sedation with Diprivan. During a brief period of time that the patient is off of medication, he begins to awaken well and demonstrates an emerging pattern of normal wakefulness although his posterior dominant background does not have an opportunity to reach a normal rate in the alpha range for the patient is sedated again with medication. TRANSINT:[id number] Voice Confirmation ID: [id number] DOCUMENT ID: [id number] ELECTROENCEPHALOGRAM REPORT [id number] TRACY BASHIR YVON CHAVIRA MD at 0651 CC: [id number] DICTATION DATE: 05/24/17 0643 HOUSEKEEPING COORDINATOR: 05/24/17 0742 DIS IN 05/24/17 [id number] [place] [address]
== END 2017-05-24 19:30 | disposition left against medical advice (07) | DRG 248 ==
LOC: D.ER 12:47 → D.CATH 12:47 → EDSTATUS 13:52 → D.ICU 14:58 → D.CATH 14:59 → D.ICU 14:59
PROVIDERS: Emergency Medicine; Internal Medicine Interventional Cardiology; Internal Medicine Pulmonary Disease; ADMIT Internal Medicine Cardiovascular Disease
PROC: 02703ZZ Dilation of Coronary Artery, One Artery, Percutaneous Approach (ICD-10-PCS; 2017-05-22)
PROC: 5A1945Z Respiratory Ventilation, 24-96 Consecutive Hours (ICD-10-PCS; 2017-05-22)
PROC: 4A023N7 Measurement of Cardiac Sampling and Pressure, Left Heart, Percutaneous Approach (ICD-10-PCS; 2017-05-22)
PROC: B2111ZZ Fluoroscopy of Multiple Coronary Arteries using Low Osmolar Contrast (ICD-10-PCS; 2017-05-22)
PROC: B2151ZZ Fluoroscopy of Left Heart using Low Osmolar Contrast (ICD-10-PCS; 2017-05-22)
PROC: 0T9B70Z Drainage of Bladder with Drainage Device, Via Natural or Artificial Opening (ICD-10-PCS; principal; 2017-05-22 14:30)
PROC: 02703EZ Dilation of Coronary Artery, One Artery with Two Intraluminal Devices, Percutaneous Approach (ICD-10-PCS; 2017-05-22 14:30)
DX: I21.19 ST elevation (STEMI) myocardial infarction involving other coronary artery of inferior wall (principal); R57.0 Cardiogenic shock; K72.00 Acute and subacute hepatic failure without coma; N17.0 Acute kidney failure with tubular necrosis; J96.00 Acute respiratory failure, unspecified whether with hypoxia or hypercapnia; J18.9 Pneumonia, unspecified organism; E87.2 Acidosis; J81.1 Chronic pulmonary edema; G93.1 Anoxic brain damage, not elsewhere classified; F17.200 Nicotine dependence, unspecified, uncomplicated; G40.909 Epilepsy, unspecified, not intractable, without status epilepticus; Z78.1 Physical restraint status; E87.6 Hypokalemia

== ENCOUNTER 2017-05-29 17:21 | Observation (INO) | payer MEDICAID ==
--- NOTE | ~2017-05-29 | HEMODYNAMI ---
PATIENT:TRACY BASHIR MEDICAL RECORD: [id number] : 65 LOCATION:[facility] D.2115 ADMISSION DATE: 05/29/17 Generatedon:05/30/20179:58 Patient name: TRACY BASHIR Patient #: [id number] SSN: : 1965 Date of study: 05/30/2017 Page: Of Hemodynamic Procedure Report Patient Data Patient Demographics Procedure consent was obtained First Name: TRACY Gender: Male Last Name: KRYSTEN : 1965 Middle Initial: W Age: 51 year(s) Patient #: [id number] Race: Additional ID: [id number] Contact details [address]: [address] [place] [address] State: [place] City: [place] Zip code: [address] Admission Admission Data Admission Date: 05/29/2017 Admission Time: 18:22 Room #: D.2115 Procedure Procedure Types Cath Procedure Diagnostic Procedure C [facility] w/Coronaries PCI Procedure Coronary Stent Initial Miscellaneous Procedures Moderate Sedation up to 30 minutes Procedure Description Procedure Date Procedure Date: 05/30/2017 Procedure Start Time: 9:37 Procedure End Time: 9:58 Procedure Staff Name Function Galileo Westfall MD Performing Physician Ileana Agrawal RT Scrub Baljit Houston RT Scrub Marcus Cash RN Nurse Darling Parisi RT Monitor Procedure Data Cath Procedure Fluoroscopy Diagnostic fluoroscopy Total fluoroscopy Time: 4.6 time: 4.6 min min Diagnostic fluoroscopy Total fluoroscopy dose: 694 dose: 694 mGy mGy Contrast Material Contrast Material Type Amount (ml) Isovue 300 84 Entry Location Entry Primary Successful Side Size Upsize Upsize Entry Closure Succes sful Closure Location (Fr) 1 (Fr) 2 (Fr) Remarks Device Remarks Femoral Right 5 Fr 6 Fr Exoseal artery Short Estimated blood loss: 10 ml Diagnostic catheters Device Type Used For End Catheter Placement Cordis 5Fr Pigtail LV Angiography Catheter (MP) Cordis 5Fr JL 4.0 Left Coronary Catheter (MP) Angiography Cordis 5Fr 3DRC Catheter Right Coronary (MP) Angiography Procedure Complications No complications Procedure Medications Medication Administration Route Dosage 0.9% NaCl I.V. 100 ml/hr Oxygen NC 2 l/min Heparin Flush Bag added to field 2 bags (1000units/500ml NS) Lidocaine 2% added to field 20 Versed I.V. 1 mg Fentanyl I.V. 50 mcg Heparin Bolus I.V. 4000 units Integrilin (Bolus I.V. 7.3 ml 2mg/ml) Plavix P.O. 600 mg Hemodynamics Rest Heart Rate: 83 (bpm) Snapshots Pre Cath Intra NCS Post Cath Vital Signs Time Heart Resp SPO2 etCO2 JD5ltil NIBP (mmHg) Rhythm Pain Sedation Rate (ipm) (%) (mmHg) (mmHg) Status Level (bpm) 9:23:34 89 19 92 0 0 154/102(142) NSR 0 (11) 10(A) , No pain 9:28:17 79 18 99 0 0 165/96(131) NSR 0 (11) 10(A) , No pain 9:33:02 70 15 99 0 0 152/82(125) NSR 0 (11) 10(A) , No pain 9:37:43 75 15 97 0 0 146/92(120) NSR 0 (11) 10(A) , No pain 9:42:25 82 16 96 0 0 147/87(117) NSR 0 (11) 9(A) , No pain 9:47:08 80 14 95 0 0 146/90(115) NSR 0 (11) 9(A) , No pain 9:51:53 81 14 97 0 0 146/84(109) NSR 0 (11) 9(A) , No pain 9:56:37 78 16 97 0 0 156/86(124) NSR 0 (11) 10(A) , No pain Medications Time Medication Route Dose Verified Delivered Reason Notes Effectiveness by by 9:33:14 0.9% NaCl I.V. 100 Marcus Marcus Per physician ml/hr Shailesh Cash RN RN 9:33:27 Oxygen NC 2 Marcus Marcus Per physician l/min Shailesh Cash RN RN 9:33:45 Heparin Flush added 2 Marcus Marcus used for Bag to bags Shailesh Cash procedure (1000units/500ml [facility] RN RN NS) 9:34:06 Lidocaine 2% added 20ml Marcus Marcus for local to vial Shailesh Cash anesthetic field RN RN 9:35:04 Versed I.V. 1 mg Marcus Marcus for sedation Shailesh Cash RN RN 9:35:15 Fentanyl I.V. 50 Marcus Marcus for sedation mcg Shailesh Cash RN RN 9:47:28 Heparin Bolus I.V. 4000 Marcus Marcus for units Shailesh Cash anticoagulation RN RN 9:47:53 Integrilin I.V. 7.3ml Marcus Marcus for (Bolus 2mg/ml) Shailesh Cash antiplatelet RN RN therapy 9:55:30 Plavix P.O. 600 Marcus Marcus for mg Shailesh Cash antiplatelet RN RN therapy Procedure Log Time Note 9:00:10 Baljit YATES(R) sent for patient. Start room use. 9:00:11 Time tracking: Regular hours 9:00:16 Plan of Care:Hemodynamics will remain stable., Cardiac rhythm will remain stable., Comfort level will be maintained., Respiratory function will remain adequate., Patient/ family verbilizes understanding of procedure., Procedure tolerated without complication., Recovers from procedure without complications.. 9:16:52 Patient received from PCU to CCL 1 Alert and oriented. Tansferred to table in Supine position. 9:16:53 Warm blankets applied, and jarred hugger turned on for patient comfort. 9:16:53 Correct patient and procedure confirmed by team. 9:16:55 Signed procedure consent form obtained from patient. 9:16:55 ECG and BP/O2 sat monitors applied to patient. 9:16:56 Full Disclosure recording started 9:22:39 Vital chart was started 9:22:43 Rhythm: sinus rhythm 9:23:30 H&P Date Dictated: 05/30/2017 Within 30 days and on chart.. 9:23:31 Pre-procedure instructions explained to patient. 9:23:32 Pre-op teaching completed and patient verbalized understanding. 9:23:34 Family in patients room. 9:23:36 Patient NPO since Midnight. 9:24:01 Is the patient allergic to Iodine/contrast media? No. 9:24:20 Is patient on blood thinner?No 9:24:21 Patient diabetic? No. 9:24:25 Previous problem with sedation/anesthesia? No ? 9:24:26 Snore? Yes 9:24:28 Sleep apnea? No 9:24:29 Deviated septum? No 9:24:33 Opens mouth fully? Yes 9:24:34 Sticks out tongue? Yes 9:24:36 Airway obstruction? No ? 9:24:37 Dentures? No ? 9:24:41 Pre procedure: right dorsailis pedis pulse 2+ Normal; easily identifiable; not easily obliterated 9:24:43 Patient pain scale 0/10 ?. 9:24:47 IV patent on arrival in left hand with 0.9% NaCl at [facility]. 9:24:53 Lab results completed and on chart. 9:24:55 Right groin area was prepped with chlora-prep and draped in sterile fashion 9:24:56 Alarms reviewed by R. N. 9:24:56 Sharps counted by scrub and verified by R.N. 9:25:02 Use device set Femoral Dx 9:25:03 Acist Syringe opened to sterile field. 9:25:04 Bag Decanter opened to sterile field. 9:25:04 Medline Cath Pack opened to sterile field. 9:25:04 Terumo 5Fr Nemo Sheath opened to sterile field. 9:25:05 St Robin 260cm J .035 wire opened to sterile field. 9:25:06 Acist Hand Control opened to sterile field. 9:25:06 Acist Manifold opened to sterile field. 9:25:07 Diagnostic Infinity 5Fr Multipack catheter opened to sterile field. 9:25:07 Tegaderm 4 x 4 opened to sterile field. 9:27:55 Baseline sample Acquired. 9:31:29 Zero performed for pressure channel P1 9:32:34 Physician paged 9:33:14 0.9% NaCl 100 ml/hr I.V. was administered by Marcus Cash RN; Per physician; 9:33:27 Oxygen 2 l/min NC was administered by Marcus Cash RN; Per physician; 9:33:45 Heparin Flush Bag (1000units/500ml NS) 2 bags added to field was administered by Marcus Cash RN; used for procedure; 9:34:06 Lidocaine 2% 20ml vial added to field was administered by Marcus Cash RN; for local anesthetic; 9:34:41 Final Timeout: patient, procedure, and site verified with staff and physician. All members of the team are in agreement. 9:34:43 Right groin site verified by team. 9:34:45 Physical assessment completed. ASA score P 2 - A patient with mild systemic disease as per Galileo Westfall MD. 9:34:48 Sedation plan: IV Moderate Sedation Versed, Fentanyl 9:35:04 Versed 1 mg I.V. was administered by Marcus Cash RN; for sedation; 9:35:15 Fentanyl 50 mcg I.V. was administered by Marcus Cash RN; for sedation; 9:37:46 Procedure started. 9:37:49 Local anesthetic to right femoral artery with Lidocaine 2% by Galileo Westfall MD.INITIAL ACCESS ONLY 9:39:06 A 5 Fr sheath was inserted into the Right Femoral artery 9:39:26 A Cordis 5Fr Pigtail Catheter (MP) was advanced over the wire and used for LV Angiography. 9:40:09 LV gram done using RENO 9:40:18 EF : 40 % 9:40:21 Injector settings: Ml/sec: 10, Volume: 20, 9:40:22 Catheter removed. 9:40:31 A Cordis 5Fr JL 4.0 Catheter (MP) was advanced over the wire and used for Left Coronary Angiography. 9:42:03 Catheter removed. 9:42:23 Coaxis BasixCompak Inflation Kit opened to sterile field. 9:42:23 Guerra Whisper J 300cm 0.014 guide wire opened to sterile field. 9:42:24 Terumo 6Fr Nemo Sheath opened to sterile field. 9:42:41 A Cordis 5Fr 3DRC Catheter (MP) was advanced over the wire and used for Right Coronary Angiography. 9:43:14 Catheter removed. 9:43:24 Sheath upsized to a 6 Fr Short. 9:43:54 Cordis 6FR XBLAD 3.5 guide catheter opened to sterile field. 9:44:05 6 Fr XBLAD 3.5 guide catheter was inserted over the wire 9:46:59 WHISPER wire advanced. 9:47:28 Heparin Bolus 4000 units I.V. was administered by Marcus Cash RN; for anticoagulation; 9:47:53 Integrilin (Bolus 2mg/ml) 7.3ml I.V. was administered by Marcus Cash RN; for antiplatelet therapy; 9:48:21 The Medtronic Integrity 3.0 X 30 stent was advanced then removed because of failure to cross lesion 9:50:13 Inflation number: 1 A Mozec Rx 3.0 x 25 balloon was prepped and advanced across the Prox LAD, then inflated to 13 ANTONI for 0:09 (min:sec). 9:50:26 Inflation number: 2 The Mozec Rx 3.0 x 25 balloon was reinflated across the Prox LAD, to 13 ANTONI for 0:04 (min:sec). 9:50:42 Balloon removed over the wire. 9:52:33 Inflation Number: 3 A Medtronic Integrity 3.0 X 30 stent was prepped and advanced across the Prox LAD. The stent was deployed at 13 ANTONI for 0:06 (min:sec). 9:53:00 Stent catheter was removed intact over wire. 9:53:01 Wire removed. 9:53:01 Guide catheter removed. 9:53:14 Sheath removed intact; hemostasis achieved with Exoseal to the Right Femoral artery. 9:53:20 Cordis 6Fr Exoseal opened to sterile field. 9:53:24 Procedure ended.(Physican Out) 9:53:35 Fluoroscopy time 04.60 minutes. 9:53:41 Flurop Dose total: 694 9:53:41 Fluoroscopy dose: 694 mGy 9:53:45 Contrast amount:Isovue 300 84ml. 9:53:47 Sharps counted by scrub and verified by R.N. 9:53:48 Insertion/operative site no bleeding no hematoma. 9:53:51 Post-op/insertion site Right Femoral artery dressed using a 4 x 4 and Tegaderm. 9:53:54 Post right femoral artery:stable, clean and dry 9:53:56 Post Procedure Pulses reassessed and unchanged 9:53:59 Post-procedure physical assessment completed. ASA score P 2 - A patient with mild systemic disease as per Galileo Westfall MD. 9:54:01 Post procedure rhythm: unchanged. 9:54:05 Estimated blood loss: 10 ml 9:54:40 Post procedure instruction explained to patient.Patient verbalizes understanding. 9:54:40 Patient needs reinforcement of post procedure teaching. 9:55:11 Procedure type changed to Cath procedure, Diagnostic procedure, LHC, LHC w/Coronaries, PCI procedure, Coronary Stent Initial, Miscellaneous Procedures, Moderate Sedation up to 30 minutes 9:55:17 Procedure Complication : No complications 9:55:19 See physician's report for complete and final results. 9:55:30 Plavix 600 mg P.O. was administered by Marcus Cash RN; for antiplatelet therapy; 9:56:26 Procedure and supply charges have been captured, reviewed, submitted and are correct. 9:57:58 Vital chart was stopped 9:58:03 Report given to PCU. 9:58:07 Patient transfered to PCU with Bed. 9:58:17 Procedure ended. 9:58:17 Full Disclosure recording stopped 9:58:20 End room use (Document Last) Intervention Summary Intervention Notes Time ActionType Lesion and Equipment Action# Pressure Duration Attributes Used 9:48:21 Discard Medtronic Stent Integrity 3.0 X 30 stent 9:50:13 Inflate Prox LAD Mozec Rx 1 13 00:09 balloon 3.0 x 25 balloon 9:50:26 Reinflate Prox LAD Mozec Rx 2 13 00:04 balloon 3.0 x 25 balloon 9:52:33 [address] stent Prox LAD Medtronic 3 13 00:06 Integrity 3.0 X 30 stent Device Usage Item Name Manufacture Quantity Catalog Hospital Part Current Minimal L ot# / Number Charge Number Stock Stock Serial# Code Acist Acist 1 01834 375951 604971 019790 20 Syringe Medical Systems Inc Bag Microtek 1 2002S 651092 35380 900060 5 [employer] Medline Cardinal 1 [id number] 154720 36836 483035 5 Cath Pack Health Terumo 5Fr Terumo 1 [id number] 048456 812150 572786 [address] Robin St Robin 1 235520 201055 611711 468236 30 260cm J .035 wire Acist Hand Acist 1 30821 013472 404590 268852 5 Wercker [employer] Inc Acist Acist 1 53572 972593 962199 315686 5 Algorithmia Medical [employer] Inc Diagnostic Cardinal 1 [id number] 332586 30867 518769 30 Kippt 5Fr Multipack catheter Tegaderm 4 3M 1 1626W 265882 484081 627164 5 x 4 Cordis 5Fr Cardinal 1 547801 5 Pigtail Health Catheter (MP) Cordis 5Fr Cardinal 1 066079 5 JL 4.0 Health Catheter (MP) Merit Merit 1 AG8159 610388 681164 839344 15 BasixCompak Medical Inflation Kit Guerra Guerra 1 [id number] 146246 610990 181118 5 Whisper J Vascular 300cm 0.014 guide wire Terumo 6Fr Terumo 1 [id number] 142752 456754 375114 40 Nemo Sheath Cordis 5Fr Cardinal 1 847147 5 3DRC Health Catheter (MP) Cordis 6FR Cardinal 1 [id number] 095043 719107 535713 10 XBLAD 3.5 Health guide catheter Medtronic Medtronic 1 [id number] 357620 899639 1 0 [id number] Integrity 3.0 X 30 stent Mozec Rx Cardinal 1 [id number] 686602 375399 238007 5 U MOA18 3.0 x 25 Health balloon Cordis 6Fr Cardinal 1 EX600 338831 844587 941164 10 [facility] Path Logic Signature Audit [place] Stage Time Signature Unsigned Intra-Procedure 05/30/2017 Darling 9:58:37 AM Counts RT(R) Signatures Monitor : Darling Signature : Counts RT Date : Time : [facility] [address] [place] [address]
[~2017-05-29 17:21] MED LIST: ACETAMINOPHEN325 MG PO
[2017-05-29 17:40] LABS: BASOPHILS 0.4 % (0-2); EOSINOPHILS 5.7 % (0-7); HEMATOCRIT 36.7 % (42.0-54.0); HEMOGLOBIN 12.8 g/dL (13.5-17.5); IMMATURE GRANULOCYTES 1.5 % (0-5); LYMPHOCYTES 36.1 % (15-50); MCH 31.5 pg (26.0-34.0); MCHC 34.9 g/dL (31.0-37.0); MCV 90.4 fL (80.0-100.0); MEAN PLATELET VOLUME 10.4 fL (7.4-10.4); MONOCYTES 9.4 % (2-11); NEUTROPHILS 46.9 % (40-80); RBC 4.06 10x6/uL (4.20-6.10); WBC 10.4 10x3/uL (4.8-10.8)
[2017-05-29 17:41] LABS: PLATELET COUNT 316 10x3/uL (130-400)
[2017-05-29 17:57] LABS: ALBUMIN 2.6 g/dL (3.4-5.0); ALKALINE PHOSPHATASE 97 U/L (46-116); ALT (SGPT) 80 U/L (10-68); CALC OSMOLALITY 268 mosm/kg (275-300); CARBON DIOXIDE 27.7 mmol/L (21.0-32.0); CHLORIDE - SERUM 103 mmol/L (98-107); CREATININE - SERUM 1.1 mg/dL (0.6-1.3); PROTEIN - SERUM 6.6 g/dL (6.4-8.2); SODIUM 134 mmol/L (136-145); UREA NITROGEN 14 mg/dL (7-18); eGFR NON AFRICAN AMERICAN 75 mL/min (90-120)
[2017-05-29 17:59] LABS: GLUCOSE 96 mg/dL (74-106)
[2017-05-29 18:08] LABS: CHOLESTEROL, TOTAL 241 mg/dL (0-200); CKMB 1.3 U/L (0.0-3.6); CREATINE KINASE 132 UL (21-232); HDL CHOLESTEROL 22 mg/dL (32-96); LDL CHOLESTEROL 158 mg/dL (0-100); LDL-HDL RATIO 7.2 ratio (1.5-3.5); TRIGLYCERIDE 306 mg/dL (30-200)
[2017-05-29 18:20] LABS: TROPONIN-I 0.941 ng/mL (0.000-0.060)
--- NOTE | 2017-05-29 19:40 | NUR ---
PT ARRIVES VIA WC TO ROOM. PLACED ON TELE, HR 80'S. NSR ON MONITOR. ROOM AIR, SATS 95%. DENIES ANY CURRENT C/O PAIN. SPOUSE IN ROOM AT THE BEDSIDE. MEDICATIONS RECONCILED AND UNIT ROUTINES/PROTOCOLS DISCUSSED WITH PT AT THIS TIME. VERBALIZED UNDERSTANDING. CALL LIGHT PLACED WITHIN REACH. WILL CONT TO MONITOR.
[2017-05-29 23:11] VITALS: BP 122/72; BMI 25.8
[2017-05-29 23:45] LABS: TROPONIN-I 0.792 ng/mL (0.000-0.060)
[2017-05-30] VITALS: BP 130/73
--- NOTE | 2017-05-30 00:02 | NUR ---
PT RESTING WITH EYES CLOSED AND RESP EVEN UNLABORED. VSS. PT SHOWS ON TELEMETRY AN APPROX 6 SECOND PAUSE. DENIES ANY C/O PAIN OR DYSPNEA UPON AWAKENING PATIENT. WILL MONITOR.
--- NOTE | 2017-05-30 01:07 | NUR ---
PT AGAIN, HAS A 6 SECOND PAUSE ON TELE. PT AWAKENED FROM A SOUND SLEEP. DENIES ANY C/O PAIN OR DYSPNEA. NSR ON MONITOR NOW, HR 73. WILL CONT TO MONITOR.
[2017-05-30 04:00] VITALS: BP 134/76
--- NOTE | 2017-05-30 06:07 | NUR ---
DR FOY ON FLOOR TO SEE PT. MADE AWARE OF PT'S MULTIPLE PAUSES HE HAD THROUGH OUT THE NIGHT. AWAITING NEW ORDERS.
[2017-05-30 06:21] LABS: BASOPHILS 0.4 % (0-2); EOSINOPHILS 6.4 % (0-7); HEMOGLOBIN 12.6 g/dL (13.5-17.5); IMMATURE GRANULOCYTES 1.7 % (0-5); LYMPHOCYTES 29.1 % (15-50); MCH 31.6 pg (26.0-34.0); MCHC 34.1 g/dL (31.0-37.0); MEAN PLATELET VOLUME 10.3 fL (7.4-10.4); MONOCYTES 11.3 % (2-11); NEUTROPHILS 51.1 % (40-80); PLATELET COUNT 293 10x3/uL (130-400); RBC 3.99 10x6/uL (4.20-6.10); RDW 13.5 % (11.5-14.5); WBC 9.3 10x3/uL (4.8-10.8)
[2017-05-30 06:22] LABS: MCV 92.7 fL (80.0-100.0)
[2017-05-30 07:14] LABS: CALC OSMOLALITY 276 mosm/kg (275-300); CALCIUM 8.6 mg/dL (8.5-10.1); CARBON DIOXIDE 27.4 mmol/L (21.0-32.0); CHLORIDE - SERUM 104 mmol/L (98-107); CKMB 1.1 U/L (0.0-3.6); CREATINE KINASE 93 UL (21-232); GLUCOSE 97 mg/dL (74-106); SODIUM 138 mmol/L (136-145); UREA NITROGEN 14 mg/dL (7-18); eGFR NON AFRICAN AMERICAN 84 mL/min (90-120)
[2017-05-30 07:16] LABS: POTASSIUM - SERUM 3.6 mmol/L (3.5-5.1)
--- NOTE | 2017-05-30 07:30 | NUR ---
RECEIVED PT IN BED EYES CLOSED RESP UNLABORED NAD NOTED
[2017-05-30 07:38] VITALS: BP 146/78
--- NOTE | 2017-05-30 08:16 | NUR ---
NOTIFIED DR MIGUEL PT HAD A 3.8 PAUSE ON TELEMETRY
--- NOTE | 2017-05-30 09:20 | NUR ---
PT TO MANAGER COLLECTION VIA BED
--- NOTE | 2017-05-30 10:10 | NUR ---
RECEIVED PT BACK FROM [employer] VIA BED VSS PPPX4 RT SKYE RUIZ C/D/I
[2017-05-30] MEDS ORDERED: ASPIRIN81 MG PO (12:19)
[2017-05-30] MEDS ORDERED: PLAVIX75 MG PO (12:20)
[2017-05-30 12:28] LABS: CKMB 1.2 U/L (0.0-3.6); CREATINE KINASE 85 UL (21-232)
[2017-05-30 12:38] LABS: TROPONIN-I 0.601 ng/mL (0.000-0.060)
--- NOTE | 2017-05-30 13:14 | NUR ---
PT'S CALLED WITH QUESTIONS CONCERNING HEART CATH. NO PASSWORD IN PLACE. NO INFO GIVEN AT THIS TIME.
--- NOTE | 2017-05-30 14:05 | NUR ---
REVIEWED DISCHARGE INSTRUCTIONS WITH PT AND BOTH STATE UNDERSTANDING COPY GIVEN DCD SALINE LOC TO LAC WITH IV CATHETER INTACT SITE FRRE OF REDNESS OR EDEMA DISCHARGED PT HOME LEFT UNIT IN STABLE CONDITION WITH ALL PERSONAL BELONGINGS VIA W/C
--- NOTE | 2017-05-30 16:47 | OP ---
PATIENT NAME: TRACY BASHIR MEDICAL RECORD: [id number] :65 LOCATION:D.M2 D.2115 ADMISSION DATE:05/29/17 SURGEON: YUNI MIGUEL MD DATE OF OPERATION: 05/30/2017 PROCEDURES: 1. PTCA stent to LAD. 2. Left heart catheterization. 3. Selective coronary angiography. 4. Left ventriculogram. INDICATION: Unstable angina. PROCEDURE IN DETAIL: After informed consent was obtained and after detailed explanation of risks, benefits as well as alternative therapies, the patient elected to proceed with angiogram and angioplasty. The right femoral area was prepped and draped in normal sterile fashion. The right femoral artery was cannulated via modified Seldinger technique with placement of 6-Mohawk sheath. All catheters exchanged through this sheath. FINDINGS: The left ventriculogram was performed in standard 30-degree RENO view, reveals mild global hypokinesis, ejection fraction 40%. SELECTIVE CORONARY ANGIOGRAPHY: 1. Left main showed no significant angiographic disease. 2. Left anterior descending has 80% to 90% stenosis throughout the proximal vessel. 3. The left circumflex has mild irregularities. The first obtuse marginal was previously stented, it is widely patent. 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 Due to the size of this aneurysm, this is not ideal for transcatheter revascularization. 4. The right coronary artery has totally occluded. This is a chronic total occlusion, unchanged from previous angiography. PTCA STENT OF THE LAD: The stent used was a 3.0 x 30 mm Integrity. Result was 0% residual stenosis. OVERALL IMPRESSION: Successful percutaneous transluminal coronary angioplasty stent of the left anterior descending going from 80% to 90% initial stenosis to 0% residual stenosis. TRANSINT:[id number] Voice Confirmation ID: [id number] DOCUMENT ID: [id number] YUNI MIGUEL MD at 1647 CC: [id number] DICTATION DATE: 05/30/17 0957 OPTOMECHANICAL TECHNICIAN: 05/30/17 1254 ADM IN [facility] [address] [place] [address]
--- NOTE | 2017-05-30 16:48 | DS ---
PATIENT:TRACY WRIGHT :65 MEDICAL RECORD: [id number] DISCHARGE SUMMARY ADMISSION DATE: 05/29/17 DISCHARGE DATE: DATE OF SERVICE: 05/30/2017. DISCHARGE DIAGNOSES: 1. Angina. 2. Coronary artery disease. 3. Percutaneous transluminal coronary angioplasty stent to left anterior descending this admission. HOSPITAL COURSE: Mr. Wright presented last week with sudden cardiac , found down, found to have severe 3-vessel coronary artery disease. He underwent successful PTCA stent of the left circumflex. He then left AMA. He comes back with chest discomfort, has significant disease of the LAD, underwent PTCA stent of the LAD. Discharged home with the addition of aspirin and Plavix to his medical regimen. Hopefully, he will comply with the aspirin and Plavix. Follow up with [facility] in 1 month. TRANSINT:[id number] Voice Confirmation ID: [id number] DOCUMENT ID: [id number] YUNI MIGUEL MD at 1648 CC: [id number] DICTATION DATE: 05/30/1758 AUDIO VISUAL AIDS DIRECTOR: 05/30/17 1459 ADM IN [facility] [address] [id number]
== END 2017-05-30 14:05 | disposition home or self-care (01) ==
LOC: D.ER 17:21 → OBSVTIME 18:22 → D.M2 18:22
PROVIDERS: Emergency Medicine; Internal Medicine Cardiovascular Disease; ADMIT Family Medicine
DX: I25.110 Atherosclerotic heart disease of native coronary artery with unstable angina pectoris (principal); Z95.5 Presence of coronary angioplasty implant and graft; Z72.0 Tobacco use; I49.5 Sick sinus syndrome; I21.3 ST elevation (STEMI) myocardial infarction of unspecified site